=== PATIENT | female | born 1965 ===

== ENCOUNTER 2017-08-23 15:01 | Outpatient (CLI) | payer OTHER ==
[~2017-08-23] VITALS: Ht 162.6 cm; Wt 88.0 kg
== END 2017-08-23 15:15 | disposition home or self-care (01) ==
LOC: OFIC 805 15:01
DX: H61.21 Impacted cerumen, right ear (principal); H60.8X1 Other otitis externa, right ear

== ENCOUNTER 2017-08-23 16:32 | Outpatient (CLI) | payer OTHER | END 2017-08-23 16:47 | disposition home or self-care (01) | LOC: LAB 16:32 | DX: H60.01 Abscess of right external ear (principal) ==